=== PATIENT | female | born 1960 | race Asian ===

== ENCOUNTER 2024-05-05 09:27 | Day surgery (SDC) | payer BC, OTHER ==
[2024-05-03 14:18] VITALS: BMI 28.3
[2024-05-05] MEDS ORDERED: LIDOCAINE 1% P/F 10 MG/ML VIAL ONE (09:31)
[2024-05-05] MEDS ORDERED: CARBACHOL 0.01% INTRA-OCULAR 1.5 ML VIAL ONE (09:31)
[2024-05-05] MEDS ORDERED: BSS (NA/CA/MG/K) BALANCED SALT SOLUTION OPHTH SOLN 15 ML BOTTLE ONE (09:31)
[2024-05-05] MEDS ORDERED: NEO/POLYMYX B SULF/DEXAMETH OPHTHALMIC 5ML BOTTLE ONE (09:31)
[2024-05-05] MEDS ORDERED: TETRACAINE 0.5% OPHTH SOLN 2 ML BOTTLE ONE (09:31)
[2024-05-05] MEDS: PHENYLEPHRINE 2.5% OPTHALMIC DROP 2ML BOTTLE ONE (09:55)
[2024-05-05] MEDS: TROPICAMIDE 1% OPHTH SOLN 15 ML BOTTLE ONE (09:55)
[2024-05-05] MEDS: CIPROFLOXACIN 0.3% EYE DROPS 5 ML BOTTLE ONE (09:55)
[2024-05-05] MEDS: CYCLOPENTOLATE 2% OPHTH SOLN 2 ML BOTTLE ONE (09:55)
[2024-05-05 10:03] VITALS: RESP 16
[2024-05-05] MEDS ORDERED: TRYPAN BLUE 0.5 ML DISP.SYRIN ONE (12:27)
[2024-05-05 13:01] VITALS: TEMP 97.9
[2024-05-05 13:03] VITALS: BP 158/73; PULSE 82
== END 2024-05-05 13:05 | disposition home or self-care (01) ==
LOC: FASU 09:27
PROVIDERS: ATTEND Ophthalmology
PROC: 08RJ3JZ Replacement of Right Lens with Synthetic Substitute, Percutaneous Approach (ICD-10-PCS; principal; 2024-05-05 12:08)
DX: H26.8 Other specified cataract (principal)
CPT/HCPCS: 66984; V2632; 82962